=== PATIENT | female | born 1975 | race African-American/Black ===

== ENCOUNTER → 2019-11-10 | Day surgery (SDC) | payer OTHER ==
[2019-10-25 12:30] LABS: BASOPHILS % 0.2 % (0.0-1.0); EOSINOPHILS # (AUTO) 0.1 (0.0-0.4); EOSINOPHILS % 0.9 % (0.0-6.0); HEMATOCRIT 37.1 % (34.2-44.1); HEMOGLOBIN 11.5 g/dL (12.0-16.0); LYMPHOCYTES # (AUTO) 2.1 (1.0-3.2); LYMPHOCYTES % 37.9 % (18.0-39.1); MEAN CORPUSCULAR HEMOGLOBIN 26.6 pg (28-32); MEAN CORPUSCULAR VOLUME 85.7 fL (81-99); MONOCYTES # (AUTO) 0.6 (0.2-0.8); MONOCYTES % 10.9 % (4.4-11.3); NEUTROPHILS # (AUTO) 2.7 (2.1-6.9); NEUTROPHILS % 49.4 % (38.7-80.0); PLATELET COUNT 341 x10e3/uL (140-360); RED BLOOD COUNT 4.33 x10e6/uL (3.6-5.1); RED CELL DISTRIBUTION WIDTH 14.2 % (11.7-14.4)
[~2019-11-10] VITALS: Ht 167.6 cm; Wt 113.4 kg
[~2019-11-10] MED LIST: ACETAMINOPHEN650 MG RC; ALBUTEROL0.63 MG/3 INH; AMLODIPINE BESY10 MG PO; ASPIRIN81 MG PO; B12 ACTIVE1000 MCG; CYCLOBENZAPRINE5 MG PO; EZETIMIBE10 MG; FENTANYL CITRATE/PF 100MCG/2 ML INJ ONE; FERROUS SULFAT325 MG; LIDOCAINE HCL 2% LOCAL INJ 5 ML SDV VIAL INJ ONE; LIPITOR20 MG PO; LYRICA150 MG PO; MIDAZOLAM HCL 2 MG/2 ML VIAL ONE; MULTIVITAMINS1 EAC7 PO; ONDANSETRON HCL INJ 2MG/ML 2ML 2 MG/ML VIAL ONE; PANTOPRAZOLE SO40 MG PO; PROPOFOL IV EMULSION 10 MG/ML 20 ML VIAL ONE; PROVENTIL HFA6.7 GM INH; SCOPOLAMINE 1.5 MG PATCH ONE; SENNA LAXATIVE8.6 MG PO; SPIRONOLACTONE25 MG PO; TEMAZEPAM15 MG PO; TYLENOL WITH C1 EACH PO; VENOFER100 MG/5 M IV; VITAMIN D3 COM1 EACH; ZOFRAN8 MG PO
[2019-11-10 11:33] VITALS: BP 129/80
--- NOTE | 2019-11-10 11:45 | Operative Report ---
DATE OF PROCEDURE: 11/10/2019 SURGEON: Geraldo Sal MD PROCEDURE PERFORMED: Colonoscopy. PREOPERATIVE DIAGNOSIS: Hematochezia. POSTOPERATIVE DIAGNOSES: Colon polyp in the sigmoid and colon polyp in the descending colon. PREOPERATIVE MEDICATIONS: Consisted of general anesthesia. DESCRIPTION OF PROCEDURE: Using an Olympus Spendji video colonoscope, it was inserted in the patient's rectum and advanced without difficulty to the level of the cecum. The colon was studied from that level back down to the rectum. There was some evidence of melanosis coli in the descending colon, was 6 mm size adenomatous polyp, which was removed with the hot biopsy forceps. Down in the sigmoid colon, was a 1.5 cm size sessile polyp, which was removed with electrical snare cautery. The colon was withdrawn from that level back down to the rectum. No other disease processes were encounter. The colonoscope was withdrawn from the patient's rectum and the procedure was ended. In conclusion, we have colon polyp in the sigmoid colon, which was removed and colon polyp in the descending colon, which was removed. Geraldo Sal MD SAF/MODL /[id number]
== END | disposition home or self-care (01) ==
LOC: OR 07:31
PROVIDERS: ATTEND Internal Medicine Gastroenterology
DX: K92.1 Melena (principal); D12.4 Benign neoplasm of descending colon; D12.5 Benign neoplasm of sigmoid colon; K63.89 Other specified diseases of intestine; K59.04 Chronic idiopathic constipation; K21.9 Gastro-esophageal reflux disease without esophagitis; K44.9 Diaphragmatic hernia without obstruction or gangrene; J45.909 Unspecified asthma, uncomplicated; I10 Essential (primary) hypertension; E78.5 Hyperlipidemia, unspecified; F41.9 Anxiety disorder, unspecified; Z88.0 Allergy status to penicillin; Z91.040 Latex allergy status; Z01.810 Encounter for preprocedural cardiovascular examination; Z01.812 Encounter for preprocedural laboratory examination; Z11.59 Encounter for screening for other viral diseases; Z79.82 Long term (current) use of aspirin; Z68.38 Body mass index [BMI] 38.0-38.9, adult; Z86.73 Personal history of transient ischemic attack (TIA), and cerebral infarction without residual deficits; Z80.0 Family history of malignant neoplasm of digestive organs
CPT/HCPCS: 36415; 45384; 45385; 85025; 93005; J2001; J2250; J2405; J2704; J3010; U0002 ×2